=== PATIENT | male | born 1975 | race African-American/Black ===

== ENCOUNTER 2022-03-10 02:04 | Emergency (ER) | payer MEDICAID ==
[~2022-03-10] VITALS: Ht 177.8 cm; Wt 95.0 kg
[2022-03-10 03:25] VITALS: BP 135/89
== END 2022-03-10 03:34 | disposition home or self-care (01) ==
LOC: ER 02:04
DX: Z02.89 Encounter for other administrative examinations (principal)
CPT/HCPCS: 99283